=== PATIENT | female | born 1950 | race Caucasian/White ===

== ENCOUNTER 2019-09-21 06:13 | Day surgery (SDC) | payer MEDICARE, OTHER ==
[~2019-09-21 06:13] MED LIST: Lactated Ringers 1,000 ML IV SCH
[2019-09-21] MEDS ORDERED: Propofol 200 MG/20 ML SDV ONE (07:40)
[2019-09-21] MEDS ORDERED: fentaNYL 100 MCG/2 ML SDV ONE (07:41)
[2019-09-21] MEDS ORDERED: Midazolam 1 MG/ML 2 ML SDV ONE (07:51)
[2019-09-21 08:47] VITALS: BP 148/70; PULSE 68
--- NOTE | 2019-09-21 12:58 | OR ---
PREOPERATIVE DIAGNOSIS: History of colon polyps. POSTOPERATIVE DIAGNOSIS: Multiple colon polyps. PROCEDURE PERFORMED: Total flexible colonoscopy. ANESTHESIA: MAC anesthesia. COMPLICATIONS: None. FINDINGS: 1. Ascending colon polyps x2, 3 to 4 mm, cold snare. 2. Hepatic flexure polyp, 5 mm, cold snare. 3. Sigmoid colon polyp, 2 mm, cold forceps. START TIME: 0748 CECUM TIME: 0755 END TIME: 0813. BOWEL PREP: [place] class 3. INDICATIONS FOR PROCEDURE: Ms. Fletcher is a 69-year-old female who has a history of colon polyps. Her last colonoscopy was 5 years ago at which point she had a single tubular adenoma. She denies bloody or dark black stools. No change in bowel habits. She has no family history of colon cancer. DETAILS OF PROCEDURE: Informed consent was obtained. The patient was brought to the procedure room. Placed in left lateral decubitus position. MAC anesthesia was induced by Anesthesia colleagues. The colonoscope equipped with an Endocuff device was then introduced into the rectum and advanced all the way to the cecum. The appendiceal orifice and IC valve were photographed. The colonoscope was then slowly withdrawn. No pathology was identified except for what is mentioned in the finding section. The scope was then retroflexed. The patient tolerated procedure well, was awoken from MAC anesthesia by Anesthesia colleagues without incident. PATHOLOGY: A) Colon, ascending polyp Fragments of tubular adenoma(s) B) Colon, hepatic flexure polyp Tubular adenoma C) Colon, sigmoid polyp Tubular adenoma Recommend repeat colonoscopy in 3 years. RKM: 09/21/2019 08:23:55 MODL: 09/21/2019 10:19:37 /[id number] LAURENT
--- NOTE | 2019-09-29 11:59 | LETTER ---
09/28/2019 RE: LETTY FLETCHER : 1950 Letty Fletcher [address] [place] [id number] Dear Yue Chance: I am writing to inform you your pathology results from your recent colonoscopy. You had multiple tubular adenomas. A tubular adenoma is a polyp that does not contain cancer, but can become cancer, which is why we removed them. You will need another colonoscopy in 3 years. Thank you.
== END 2019-09-21 09:15 | disposition home or self-care (01) ==
LOC: VM.SDS 06:13
PROVIDERS: ATTEND Student in an Organized Health Care Education/Training Program
DX: Z12.11 Encounter for screening for malignant neoplasm of colon (principal); D12.2 Benign neoplasm of ascending colon; D12.3 Benign neoplasm of transverse colon; D12.5 Benign neoplasm of sigmoid colon; I10 Essential (primary) hypertension; E78.00 Pure hypercholesterolemia, unspecified; K21.9 Gastro-esophageal reflux disease without esophagitis; E66.9 Obesity, unspecified; E11.9 Type 2 diabetes mellitus without complications; E78.5 Hyperlipidemia, unspecified; F32.9 Major depressive disorder, single episode, unspecified; M21.40 Flat foot [pes planus] (acquired), unspecified foot; E88.81 Metabolic syndrome and other insulin resistance; Z11.59 Encounter for screening for other viral diseases; Z86.010 Personal history of colon polyps; Z98.890 Other specified postprocedural states; Z79.84 Long term (current) use of oral hypoglycemic drugs; Z68.29 Body mass index [BMI] 29.0-29.9, adult
CPT/HCPCS: 00811; 45380; 45385; 82962; 88305; J2250; J2704; J3010; J7120; U0002

== ENCOUNTER 2022-11-06 06:53 | Day surgery (SDC) | payer MEDICARE, OTHER ==
[2022-11-06] MEDS ORDERED: Lactated Ringers 1,000 ML IV SCH (07:00)
[2022-11-06] MEDS ORDERED: Propofol 200 MG/20 ML SDV ONE (08:09)
[2022-11-06] MEDS ORDERED: fentaNYL 100 MCG/2 ML SDV ONE (08:10)
[2022-11-06 12:10] VITALS: BP 111/65; PULSE 66
== END 2022-11-06 09:50 | disposition home or self-care (01) ==
LOC: VM.SDS 06:53
PROVIDERS: ATTEND Family Medicine
DX: Z12.11 Encounter for screening for malignant neoplasm of colon (principal); D12.4 Benign neoplasm of descending colon; K57.30 Diverticulosis of large intestine without perforation or abscess without bleeding; K64.9 Unspecified hemorrhoids; I10 Essential (primary) hypertension; E78.5 Hyperlipidemia, unspecified; E11.9 Type 2 diabetes mellitus without complications; K21.00 Gastro-esophageal reflux disease with esophagitis, without bleeding; F32.A Depression, unspecified; E66.9 Obesity, unspecified; Z79.82 Long term (current) use of aspirin; Z79.84 Long term (current) use of oral hypoglycemic drugs; Z79.899 Other long term (current) drug therapy
CPT/HCPCS: 00811; 82947; 88305; J2704; J3010; J7120